=== PATIENT | female | born 1970 | race Caucasian/White ===

== ENCOUNTER → 2020-10-11 | Outpatient (CLI) | payer OTHER ==
[2020-10-11 08:46] LABS: HEMATOCRIT 40.7 % (37.0-47.0); MEAN CELL VOLUME 93.1 fl (81.0-99.0); MEAN CORPUSCULAR HGB 31.1 pg (27.0-31.0); MEAN CORPUSCULAR HGB CONC 33.4 g/dl (33.0-37.0); MEAN PLATELET VOLUME 9.9 fl (9.6-12.3); RED BLOOD COUNT 4.37 10*6/uL (4.10-5.10); RED CELL DISTRI WIDTH 12.4 % (0-14.5); WHITE BLOOD COUNT 6.6 10*3/uL (4.8-10.8)
[2020-10-11 09:19] LABS: ALBUMIN 4.1 gm/dl (3.1-4.5); ALKALINE PHOSPHATASE 67 U/L (45-117); BUN 18 mg/dl (7-24); CHLORIDE 106 mmol/L (98-107); CHOLESTEROL 205 mg/dL (<200); CREATININE 0.96 mg/dL (0.55-1.02); POTASSIUM 4.1 mmol/L (3.5-5.1); SGOT/AST 14 IU/L (3-35); SGPT/ALT 22 U/L (12-78); SODIUM 140 mmol/L (136-145); TOTAL PROTEIN 7.5 gm/dL (6.4-8.2)
[2020-10-11 10:17] LABS: LDL CHOLESTEROL 109 mg/dL (9-159); TRIGLYCERIDES 195 mg/dl (<150)
== END | disposition home or self-care (01) ==
LOC: LAB 08:21
PROVIDERS: ATTEND Family Medicine
DX: Z13.220 Encounter for screening for lipoid disorders (principal); I10 Essential (primary) hypertension; R53.83 Other fatigue; E55.9 Vitamin D deficiency, unspecified